=== PATIENT | female | born 1945 | race Caucasian/White ===

== ENCOUNTER 2016-04-17 17:08 | Emergency (ER) | payer OTHER ==
--- NOTE | 2016-04-17 18:15 | DIAGNOSTIC IMAGING REPORT ---
PROCEDURE: CT HEAD WITHOUT CONTRAST INDICATION: TRAUMA/INJURY TECHNIQUE: Axial CT images were acquired through the head. Coronal and sagittal reformations were created. COMPARISON: None. FINDINGS: Mild cerebral cortical atrophy. Minimal hypodensity in the periventricular and subcortical white matter. No intracranial hemorrhage or extraaxial fluid collections. Ventricles are normal in size, shape and position. There is no mass, mass effect or midline shift. The calvarium is intact. Fluid is noted within the nasal cavities. The extracranial soft tissues and orbits are normal. IMPRESSION: 1. No CT evidence of acute intracranial process. 2. Age related involutional and white matter changes. 3. Findings discussed with Tanesha at 06:[address] scans at this facility use dose modulation, iterative reconstruction, and/or weight-based dosing when appropriate to reduce radiation dose to as low as reasonably achievable.
--- NOTE | 2016-04-17 18:20 | ED CLINICAL REPORT ---
Clinical Report - Physicians/Mid Levels [facility] [address] [place] [address] 04/17/2016 17:08 Patient: DHAVAL ORTEGA Time Seen: 18:46 Apr 17 2016. Arrived- By ambulance. Historian- patient, EMS personnel and family. HISTORY OF PRESENT ILLNESS Chief Complaint: FALL. Location of injuries- (head/ nose). The injury occurred just prior to arrival. Fell. No fainting episodes. Occurred at home. The patient complains of mild pain. The patient sustained a blow to the head. No neck pain or loss of consciousness. Not dazed. (pt with dementia/ alzheimer fell today prior to arrival History from POA). REVIEW OF SYSTEMS No loss of vision, hearing loss or laceration. All systems otherwise negative, except as recorded above. SOCIAL HISTORY No alcohol use or drug use. ADDITIONAL NOTES The nursing notes have been reviewed. PHYSICAL EXAM Vital Signs: 04/17/2016 17:08 BP: 134/66. HR: 65. RR: 16. O2 saturation: 96%. Temp: 98.6 F. Appearance: Alert. No acute distress. but apparent distress. Head: Head non-tender. Eyes: EOM intact. Right periorbital area: (area of ecchymosis laterally and right sikh, with no abrasion). ENT: Nose: dried nasal blood and mild tenderness and swelling (mild, no ecchymosis/ laceration, dried blood left side). No abrasion, puncture wound or deformity over the nose. No foreign body. Neck: Non-tender. No vertebral tenderness. CVS: Heart sounds normal. Pulses normal. Respiratory: Breath sounds normal. Chest nontender. No chest wall injury. Abdomen: No visible injury. Soft. Bowel sounds normal. No abdominal tenderness or rebound tenderness. Back: No tenderness. ROM normal. No tenderness. Skin: Skin intact. Skin warm. Extremities: Right shoulder. No erythema or tenderness. Pelvis stable. Neuro: Moderately altered mental status: combative and disoriented to person, place and time. Eyes open spontaneously. Best verbal response: disoriented. Best motor response: localizes to pain. Not comatose. LABS, X-RAYS, AND EKG CT Head: (IMPRESSION: 1. No CT evidence of acute intracranial process. 2. Age related involutional and white matter changes. 3. Findings discussed with Tanesha at 06:[address] scans at this facility use dose modulation, iterative reconstruction, and/or weight-based dosing when appropriate to reduce radiation dose to as low as reasonably achievable. Electronically Final signed by:Jan Garrido MD 04/17/2016 6:18:33 PM). PROGRESS AND PROCEDURES Course of Care: 70-year-old female, who is disoriented, and pleasant, and per her normal self, patient is stable. NO signs of ich. Pt is DNR, poa/ does not want any further intervention. 04/17/2016 17:08 BP: 134/66. HR: 65. RR: 16. O2 saturation: 96%. Temp: 98.6 F. Patient is stable. Physical exam findings are improved. Symptoms better. Patient/family counseled. Disposition: Discharged. Condition: good. CLINICAL IMPRESSION Acute anterior, transient epistaxis Single contusion with soft tissue hematoma to the head. Fall on same level by tripping. INSTRUCTIONS Apply ice. Follow-up: Follow up with your doctor in three days as needed. (Electronically signed by Megan Almendarez P.A.-C 04/17/2016 18:51)
--- NOTE | 2016-04-17 18:20 | ED CLINICAL REPORT ---
Clinical Report - Physicians/Mid Levels [facility] [address] [place] [address] 04/17/2016 17:08 Patient: DHAVAL ORTEGA Time Seen: 18:46 Apr 17 2016. Arrived- By ambulance. Historian- patient, EMS personnel and family. HISTORY OF PRESENT ILLNESS Chief Complaint: FALL. Location of injuries- (head/ nose). The injury occurred just prior to arrival. Fell. No fainting episodes. Occurred at home. The patient complains of mild pain. The patient sustained a blow to the head. No neck pain or loss of consciousness. Not dazed. (pt with dementia/ alzheimer fell today prior to arrival History from POA). REVIEW OF SYSTEMS No loss of vision, hearing loss or laceration. All systems otherwise negative, except as recorded above. SOCIAL HISTORY No alcohol use or drug use. ADDITIONAL NOTES The nursing notes have been reviewed. PHYSICAL EXAM Vital Signs: 04/17/2016 17:08 BP: 134/66. HR: 65. RR: 16. O2 saturation: 96%. Temp: 98.6 F. Appearance: Alert. No acute distress. but apparent distress. Head: Head non-tender. Eyes: EOM intact. Right periorbital area: (area of ecchymosis laterally and right zoroastrian, with no abrasion). ENT: Nose: dried nasal blood and mild tenderness and swelling (mild, no ecchymosis/ laceration, dried blood left side). No abrasion, puncture wound or deformity over the nose. No foreign body. Neck: Non-tender. No vertebral tenderness. CVS: Heart sounds normal. Pulses normal. Respiratory: Breath sounds normal. Chest nontender. No chest wall injury. Abdomen: No visible injury. Soft. Bowel sounds normal. No abdominal tenderness or rebound tenderness. Back: No tenderness. ROM normal. No tenderness. Skin: Skin intact. Skin warm. Extremities: Right shoulder. No erythema or tenderness. Pelvis stable. Neuro: Moderately altered mental status: combative and disoriented to person, place and time. Eyes open spontaneously. Best verbal response: disoriented. Best motor response: localizes to pain. Not comatose. LABS, X-RAYS, AND EKG CT Head: (IMPRESSION: 1. No CT evidence of acute intracranial process. 2. Age related involutional and white matter changes. 3. Findings discussed with Tanesha at 06:[address] scans at this facility use dose modulation, iterative reconstruction, and/or weight-based dosing when appropriate to reduce radiation dose to as low as reasonably achievable. Electronically Final signed by:Jan Garrido MD 04/17/2016 6:18:33 PM). PROGRESS AND PROCEDURES Course of Care: 70-year-old female, who is disoriented, and pleasant, and per her normal self, patient is stable. NO signs of ich. Pt is DNR, poa/ does not want any further intervention. 04/17/2016 17:08 BP: 134/66. HR: 65. RR: 16. O2 saturation: 96%. Temp: 98.6 F. Patient is stable. Physical exam findings are improved. Symptoms better. Patient/family counseled. Disposition: Discharged. Condition: good. CLINICAL IMPRESSION Acute anterior, transient epistaxis Single contusion with soft tissue hematoma to the head. Fall on same level by tripping. INSTRUCTIONS Apply ice. Follow-up: Follow up with your doctor in three days as needed. (Electronically signed by Megan Almendarez P.A.-C 04/17/2016 18:51)
--- NOTE | 2016-04-17 18:21 | ED ORDER SUMMARY ---
..... Patient: DHAVAL ORTEGA OrderSheet [facility] VisitID: [id number] [address] [place] [address] 70y, F Registration Date/Time: 04/17/2016 ORDER SHEET Weight: 45.3 kg (estimated) Allergies: Penicillins, Sulfa Antibiotics GENERAL ORDERS: CT Head wo Cont Urgent (17:29 04/17/2016 Domi Arana) (Ack 17:33 NHouse ER Tech1) (18:01 NHouse ER Tech1) MEDICATION ORDERS: IV FLUIDS: ORDER SHEET NOTES: [Electronically signed by Megan Almendarez P.A.-C (18:51 04/17/2016)] [Electronically signed by David Nieves R.N. (23:12 04/17/2016)] [Electronically locked/signed by David Nieves R.N. (23:12 04/17/2016)]
--- NOTE | 2016-04-17 18:21 | ED NURSING NOTES ---
Clinical Report - Nurses [facility] [address] [place] [address] 04/17/2016 17:08 Patient: DHAVAL ORTEGA TRIAGE Triage time 1716. Chief Complaint: FALL while standing. Alert. No acute distress. SAPNA COMA SCORE: [place] Coma Scale: 15- eyes open spontaneously (4); best verbal response- oriented x 4 (5); best motor response- obeys commands (6). --17:18 David Nieves R.N. 17:08 04/17/16. BP: 134/66. HR: 65. RR: 16. O2 saturation: 96%. Temp: 98.6 F (oral). Pain level now not taken due to patient condition: cannot qualify. --17:18 David Nieves R.N. Weight: 45.3 kg estimated. Height/Length: 62 inches Estimated. BMI: 18.3. --17:08 David Nieves R.N. Medications Acetaminophen Extra Strength Oral. --17:20 David Nieves R.N. Aspirin Oral (Tablet Chewable 81 mg) 1 tablet. --17:20 David Nieves R.N. Tums Ultra 1000 Oral. --17:20 David Nieves R.N. Divalproex Sodium ER Oral. --17:21 David Nieves R.N. Multivitamins Oral. --17:21 David Nieves R.N. RisperiDONE Oral. --17:21 David Nieves R.N. Vitamin D Oral. --17:21 David Nieves R.N. Vitamin E Complex Oral. --17:21 David Nieves R.N. Ensure Oral. --17:22 David Nieves R.N. Melatonin Oral. --17:22 David Nieves R.N. LORazepam Oral. --17:23 David Nieves R.N. TraZODone HCl Oral. --17:24 David Nieves R.N. Allergies Penicillins. Sulfa Antibiotics. --17:18 David Nieves R.N. History Arrived by EMS. Historian: EMS. Location of injuries: right periorbital area. The patient had loss of consciousness. --17:18 David Nieves R.N. FALL RISK ASSESSMENT: Fall risk assessment completed. Risk factors identified include patient medications and age greater than 65 years. Fall interventions initiated. Patient placed on stretcher. Side rails up x2. Brakes on Bed in low position. Patient visible from nurses' station. Call light in reach of patient. Instructed not to get up without assistance. --17:29 David Nieves R.N. PROBLEMS: Laceration. Fall. Dementia. --17:26 David Nieves R.N. ADDITIONAL SURGERIES: no known surgeries. PHYSICAL ASSESSMENT To room via stretcher. GENERAL / NEURO / PSYCH: Alert. Oriented X 4. Appears in no acute distress. HEENT: Pupils equal, round and reactive to light. Head: ecchymosis present in the right temporal area. Active nose bleed present. Head non-tender. Right periorbital area: ecchymosis. RESPIRATORY: Respirations not labored. Chest nontender. Breath sounds within normal limits. CVS: Normal heart rate and rhythm. Pulses within normal limits. Capillary refill less than 2 seconds. GI / : Abdomen soft and nontender. EXTREMITIES: Extremities exhibit normal ROM. Neuro-vascular status intact to the extremity. Right shoulder: ecchymosis. SKIN: Skin intact. Skin is warm and dry. --23:07 David Nieves R.N. NURSING PROGRESS NOTES Bleeding controlled with manual pressure (patient provided with a towel to hold pressure for nose bleed). The patient reports no complaints and she is calm and resting quietly. Overall patient status is improved. GENERAL / NEURO / PSYCH: Alert. Altered mental status. (baseline dementia). RESPIRATORY: No respiratory distress. CVS: Capillary refill less than 2 seconds. GI / : Abdomen nontender. EXTREMITIES: Neuro-vascular status intact to the extremity. Call light placed in reach. Side rails up x 1. Bed placed in lowest position. Brakes of bed on. Patient placed in chair. --23:08 David Nieves R.N. ( Patient able to stand and ambulate out of the emergency department with an even and steady gait.). --23:11 David Nieves R.N. DISPOSITION / DISCHARGE Condition at departure: improved. The goals identified in the patient's plan of care were met. Ability to learn limited by poor comprehension and dementia; teaching performed with the family. Treatments reviewed (ice). Spouse verbalized understanding. The patient was discharged to the custodial and accompanied by spouse. She left the Emergency Department ambulatory and via private vehicle. Spouse driving. FALL RISK ASSESSMENT: Fall risk assessment completed. No fall risk identified. --23:10 David Nieves R.N. 18:40 04/17/16. BP: 120/85. HR: 85. RR: 16. O2 saturation: 100%. Temp: 98.2 F (oral). Pain level now: 0/10. --23:10 David Nieves R.N. Departure time: 1843 PM. --23:11 David Nieves R.N. Locked/Released at 04/17/2016 23:12 by David Nieves R.N.
--- NOTE | 2016-04-17 18:21 | ED NURSING NOTES ---
Clinical Report - Nurses [place] [address] [place] [address] 04/17/2016 17:08 Patient: DHAVAL ORTEGA TRIAGE Triage time 1716. Chief Complaint: FALL while standing. Alert. No acute distress. SAPNA COMA SCORE: [place] Coma Scale: 15- eyes open spontaneously (4); best verbal response- oriented x 4 (5); best motor response- obeys commands (6). --17:18 David Nieves R.N. 17:08 04/17/16. BP: 134/66. HR: 65. RR: 16. O2 saturation: 96%. Temp: 98.6 F (oral). Pain level now not taken due to patient condition: cannot qualify. --17:18 David Nieves R.N. Weight: 45.3 kg estimated. Height/Length: 62 inches Estimated. BMI: 18.3. --17:08 David Nieves R.N. Medications Acetaminophen Extra Strength Oral. --17:20 David Nieves R.N. Aspirin Oral (Tablet Chewable 81 mg) 1 tablet. --17:20 David Nieves R.N. Tums Ultra 1000 Oral. --17:20 David Nieves R.N. Divalproex Sodium ER Oral. --17:21 David Nieves R.N. Multivitamins Oral. --17:21 David Nieves R.N. RisperiDONE Oral. --17:21 David Nieves R.N. Vitamin D Oral. --17:21 David Nieves R.N. Vitamin E Complex Oral. --17:21 David Nieves R.N. Ensure Oral. --17:22 David Nieves R.N. Melatonin Oral. --17:22 David Nieves R.N. LORazepam Oral. --17:23 David Nieves R.N. TraZODone HCl Oral. --17:24 David Nieves R.N. Allergies Penicillins. Sulfa Antibiotics. --17:18 David Nieves R.N. History Arrived by EMS. Historian: EMS. Location of injuries: right periorbital area. The patient had loss of consciousness. --17:18 David Nieves R.N. FALL RISK ASSESSMENT: Fall risk assessment completed. Risk factors identified include patient medications and age greater than 65 years. Fall interventions initiated. Patient placed on stretcher. Side rails up x2. Brakes on Bed in low position. Patient visible from nurses' station. Call light in reach of patient. Instructed not to get up without assistance. --17:29 David Nieves R.N. PROBLEMS: Laceration. Fall. Dementia. --17:26 David Nieves R.N. ADDITIONAL SURGERIES: no known surgeries. PHYSICAL ASSESSMENT To room via stretcher. GENERAL / NEURO / PSYCH: Alert. Oriented X 4. Appears in no acute distress. HEENT: Pupils equal, round and reactive to light. Head: ecchymosis present in the right temporal area. Active nose bleed present. Head non-tender. Right periorbital area: ecchymosis. RESPIRATORY: Respirations not labored. Chest nontender. Breath sounds within normal limits. CVS: Normal heart rate and rhythm. Pulses within normal limits. Capillary refill less than 2 seconds. GI / : Abdomen soft and nontender. EXTREMITIES: Extremities exhibit normal ROM. Neuro-vascular status intact to the extremity. Right shoulder: ecchymosis. SKIN: Skin intact. Skin is warm and dry. --23:07 David Nieves R.N. NURSING PROGRESS NOTES Bleeding controlled with manual pressure (patient provided with a towel to hold pressure for nose bleed). The patient reports no complaints and she is calm and resting quietly. Overall patient status is improved. GENERAL / NEURO / PSYCH: Alert. Altered mental status. (baseline dementia). RESPIRATORY: No respiratory distress. CVS: Capillary refill less than 2 seconds. GI / : Abdomen nontender. EXTREMITIES: Neuro-vascular status intact to the extremity. Call light placed in reach. Side rails up x 1. Bed placed in lowest position. Brakes of bed on. Patient placed in chair. --23:08 David Nieves R.N. ( Patient able to stand and ambulate out of the emergency department with an even and steady gait.). --23:11 David Nieves R.N. DISPOSITION / DISCHARGE Condition at departure: improved. The goals identified in the patient's plan of care were met. Ability to learn limited by poor comprehension and dementia; teaching performed with the family. Treatments reviewed (ice). Spouse verbalized understanding. The patient was discharged to the [facility] and accompanied by spouse. She left the Emergency Department ambulatory and via private vehicle. Spouse driving. FALL RISK ASSESSMENT: Fall risk assessment completed. No fall risk identified. --23:10 David Nieves R.N. 18:40 04/17/16. BP: 120/85. HR: 85. RR: 16. O2 saturation: 100%. Temp: 98.2 F (oral). Pain level now: 0/10. --23:10 David Nieevs R.N. Departure time: 1843 PM. --23:11 David Nieves R.N. Locked/Released at 04/17/2016 23:12 by David Nieves R.N.
--- NOTE | 2016-04-17 18:21 | ED ORDER SUMMARY ---
..... Patient: DHAVAL ORTEGA OrderSheet [facility] VisitID: [id number] [address] [place] [address] 70y, F Registration Date/Time: 04/17/2016 ORDER SHEET Weight: 45.3 kg (estimated) Allergies: Penicillins, Sulfa Antibiotics GENERAL ORDERS: CT Head wo Cont Urgent (17:29 04/17/2016 Domi Arana) (Ack 17:33 [facility] ER Tech1) (18:01 NHouse ER Tech1) MEDICATION ORDERS: IV FLUIDS: ORDER SHEET NOTES: [Electronically signed by Megan Almendarez P.A.-C (18:51 04/17/2016)] [Electronically signed by David Nieves R.N. (23:12 04/17/2016)] [Electronically locked/signed by David Nieves R.N. (23:12 04/17/2016)]
--- NOTE | 2016-04-17 23:12 | ED DISCHARGE INSTRUCTIONS ---
Patient: DHAVAL ORTEGA General Instructions [facility] VisitID: [id number] [place] [address] 70y, F Registration Date/Time: 04/17/2016 Acute anterior, transient epistaxis Single contusion with soft tissue hematoma to the head. Fall on same level by tripping. INSTRUCTIONS Apply ice. Follow-up: Follow up with your doctor in three days as needed. ADDITIONAL INFORMATION Mechanical Fall You have had a fall today. It appears that the cause is mechanical. That means that you slipped, tripped or lost your balance. If your fall had been due to fainting or a seizure, further tests would be required. Home Care: Rest today and resume your normal activities when you are feeling back to normal. If you were injured during the fall, follow the advice from your doctor regarding care of your injury. You may use acetaminophen (Tylenol) or ibuprofen (Motrin, Advil) to control pain, unless another pain medicine was prescribed. [NOTE: If you have chronic liver or kidney disease or ever had a stomach ulcer or GI bleeding, talk with your doctor before using these medicines.] Fall Prevention: Was there anything that caused your fall that can be fixed, removed, or replaced? Make your home safe by keeping walkways clear of objects you may trip over. Use non-slip pads under rugs. Do not walk in poorly lit areas. Do not stand on chairs or wobbly ladders. Use caution when reaching overhead or looking upward. This position can cause a loss of balance. Be sure your shoes fit properly, have non-slip bottoms and are in good condition. Be cautious when going up and down curbs, and walking on uneven sidewalks. If your balance is poor, consider using a cane or walker. Stay as active as you can. Balance, flexibility, strength, and endurance all come from exercise. They all play a role in preventing falls. Follow Up with your doctor or as advised by our staff. Get Prompt Medical Attention if any of the following occur: Repeated mechanical falls, or unexplained falls Dizziness, fainting or seizure Severe headache Chest pain or shortness of breath Palpitations (very rapid or very slow or irregular heartbeat) Blood in vomit, stools (black or red color) Weakness of an arm or leg or one side of the face Difficulty with speech or vision Nosebleed [Adult] Bleeding from the nose most commonly occurs due to injury or drying and cracking of the inner lining of the nose. This can occur during a "common cold," "hay fever" attack, a very hot day, or from dry air in the winter. High blood pressure and hardening of the arteries (atherosclerosis) may also cause nosebleeds. If the bleeding site is found, it may be treated with a chemical or heat or electricity to cause a blood clot to form (cauterized). If the bleeding continues after cautery or if the bleeding site cannot be found, a packing may be placed in your nose to apply pressure and stop the bleeding. The packing may be made of gauze or sponge. A small balloon catheter is sometimes used. These need to be removed by your doctor. Some types of packing dissolve on their own. Home Care: If a packing was put in your nose, unless told otherwise, do not pull on it or try to remove it yourself. You will be given an appointment to have it removed. You may also have been given antibiotics to prevent a sinus infection. If so, complete all the medicine. Do not blow your nose for 12 hours after the bleeding stops. This will allow a strong blood clot to form. Do not pick your nose. This may restart bleeding. Avoid alcohol and hot liquids for the next two days. Alcohol or hot liquids in your mouth can dilate blood vessels in your nose and cause bleeding to start again. Do not take ibuprofen (Advil, Motrin), naprosyn (Aleve) or aspirin-containing medicines since these thin the blood and may promote nose bleeding. You may take Tylenol (acetaminophen) for pain, unless another pain medicine was prescribed. If the bleeding starts again, sit up and lean forward to prevent swallowing blood. Pinch your nose tightly for exactly 5 minutes (watch the clock). If bleeding is not controlled, continue to pinch and call your doctor or return to this facility. If high blood pressure was a cause for your nosebleed, have your blood pressure checked again tomorrow. If you have a "cold" or "hay fever" or dry nasal membranes, lubricate the nasal passages by applying a small amount of Vaseline inside the nose with a Q-tip twice a day (morning and night). Avoid overheating your home, which can dry the air and worsen your condition. Follow Up with your doctor as advised for packing removal. Nasal packing should be rechecked or removed within 2-3 days. Get Prompt Medical Attention if any of the following occur: Another nosebleed that you cannot control Dizziness, weakness or fainting Fever of 100.4F (38C) or higher, or as directed by your healthcare provider Headache Sinus or facial pain Shortness of breath or trouble breathing You have been given the following additional information: Fall, Mechanical Epistaxis (Adult) (Electronically signed by Megan Almendarez P.A.-C 04/17/2016 18:51)
--- NOTE | 2016-04-17 23:12 | ED MED RECONCILIATION SUMMARY ---
Patient: DHAVAL ORTEGA Medication Reconciliation Report [facility] VisitID: [id number] [address] [place] [address] 70y, F Registration Date/Time: 04/17/2016 Weight: 45.3 kg Height/Length: 62 in. BMI: 18.3 ALLERGIES: Penicillins, Sulfa Antibiotics The patient's Home Medications are listed below: THE FOLLOWING MEDICATIONS NEED TO BE RECONCILED: Acetaminophen Extra Strength Oral Aspirin Oral (81 mg) 1 tablet Divalproex Sodium ER Oral Ensure Oral LORazepam Oral Melatonin Oral Multivitamins Oral RisperiDONE Oral TraZODone HCl Oral Tums Ultra 1000 Oral Vitamin D Oral Vitamin E Complex Oral The source(s) of the original Home Medication information: Not obtained. The following Medications were given to the patient in the Emergency Department: None. The following Medications were prescribed to the patient: None.
--- NOTE | 2016-04-17 23:12 | ED MAR SUMMARY ---
..... Medication Administration Record [facility] [address] [place], [place] [id number] Patient: DHAVAL ORTEGA Visit ID: [id number] 70y, F Weight: 45.3 kg Height/Length: 62 in BMI: 18.3 ALLERGIES: Penicillins, Sulfa Antibiotics
--- NOTE | 2016-04-17 23:12 | ED MED RECONCILIATION SUMMARY ---
Patient: DHAVAL ORTEGA Medication Reconciliation Report [facility] VisitID: [id number] [address] [place] [address] 70y, F Registration Date/Time: 04/17/2016 Weight: 45.3 kg Height/Length: 62 in. BMI: 18.3 ALLERGIES: Penicillins, Sulfa Antibiotics The patient's Home Medications are listed below: THE FOLLOWING MEDICATIONS NEED TO BE RECONCILED: Acetaminophen Extra Strength Oral Aspirin Oral (81 mg) 1 tablet Divalproex Sodium ER Oral Ensure Oral LORazepam Oral Melatonin Oral Multivitamins Oral RisperiDONE Oral TraZODone HCl Oral Tums Ultra 1000 Oral Vitamin D Oral Vitamin E Complex Oral The source(s) of the original Home Medication information: Not obtained. The following Medications were given to the patient in the Emergency Department: None. The following Medications were prescribed to the patient: None.
--- NOTE | 2016-04-17 23:12 | ED MAR SUMMARY ---
..... Medication Administration Record [facility] [address] [place], [place] [id number] Patient: DHAVAL ORTEGA Visit ID: [id number] 70y, F Weight: 45.3 kg Height/Length: 62 in BMI: 18.3 ALLERGIES: Penicillins, Sulfa Antibiotics
== END 2016-04-17 18:39 | disposition home or self-care (01) ==
LOC: ED SRH 17:08
DX: S00.93XA Contusion of unspecified part of head, initial encounter (principal); R04.0 Epistaxis; W01.0XXA Fall on same level from slipping, tripping and stumbling without subsequent striking against object, initial encounter; Y93.89 Activity, other specified; Y92.009 Unspecified place in unspecified non-institutional (private) residence as the place of occurrence of the external cause; Y99.9 Unspecified external cause status; Z79.82 Long term (current) use of aspirin; Z79.899 Other long term (current) drug therapy; Z88.0 Allergy status to penicillin; Z88.2 Allergy status to sulfonamides

== ENCOUNTER 2016-04-30 19:35 | Emergency (ER) | payer OTHER ==
--- NOTE | 2016-04-30 20:44 | ED CLINICAL REPORT ---
Clinical Report - Physicians/Mid Levels [facility] [address] [place] [address] 04/30/2016 19:39 Patient: DHAVAL ORTEGA Time Seen: 19:42 Apr 30 2016. Arrived- By ambulance. Historian- EMS personnel. CPT: ER phys charges level 4 (#[id number]). HISTORY OF PRESENT ILLNESS Location of injuries- face and nose. Chief Complaint: INJURY TO FACE and NOSE. The injury occurred just prior to arrival. Occurred at home. ( Patient lives at [facility] dementia unit. She was observed by staff to trip on her slippers and fall forward. She then hit her nose in her head. No other injury. She is not on any anticoagulants. She did not have a loss of consciousness. She has no complaints of pain at this time. She has not been ill or weak.). Fell. The patient complains of mild pain. The patient sustained a blow to the head. No neck pain or loss of consciousness. Not dazed. REVIEW OF SYSTEMS No numbness, dizziness, chest pain, difficulty breathing or nausea. No abdominal pain, laceration or vomiting. She has no pain on weight bearing. All systems otherwise negative, except as recorded above. PAST HISTORY See nurses notes. Epistaxis. Laceration. Fall. Depression. Dementia. Medications: Ensure Oral. LORazepam Oral. Melatonin Oral. Multivitamins Oral. RisperiDONE Oral. TraZODone HCl Oral. Tums Ultra 1000 Oral. Vitamin D Oral. Vitamin E Complex Oral. Acetaminophen Extra Strength Oral. Aspirin Oral (Tablet Chewable 81 mg) 1 tablet. Divalproex Sodium ER Oral. Allergies: Penicillins. Sulfa Antibiotics. SOCIAL HISTORY Never smoker. No alcohol use or drug use. ADDITIONAL NOTES The nursing notes have been reviewed. PHYSICAL EXAM Vital Signs: 04/30/2016 19:42 BP: 117/64. HR: 81. RR: 16. O2 saturation: 98%. Temp: 99.5 F. Pain level now: 5/10. Appearance: Alert. No acute distress. Head: Forehead: mild tenderness, moderate swelling and medium sized ecchymosis of the right side of the forehead. No erythema, puncture wound or deformity. Eyes: Pupils equal, round and reactive to light. EOM intact. ENT: No dental injury. Pharynx normal. Nose: mild tenderness and small abrasion. No laceration. No swelling or deformity over the nose. No epistaxis or septal hematoma. Neck: No decreased ROM in the neck. Painless ROM. Non-tender. Non-tender. No vertebral tenderness. CVS: Heart sounds normal. Pulses normal. Respiratory: Breath sounds normal. Chest nontender. Abdomen: No visible injury. Soft and nontender. Back: No tenderness. Skin: Skin intact. Skin warm. Normal skin color. Extremities: Normal inspection. Pelvis stable. Extremities atraumatic. Neuro: Mildly altered mental status: disoriented. Eyes open spontaneously. Best verbal response: disoriented. Best motor response: obeys commands. No motor deficit. No sensory deficit. PROGRESS AND PROCEDURES Course of Care: 19:52 04/30/16. Patient has no evidence of any injury other than facial. No evidence of nasal fracture. Has not had any epistaxis. She did not have a loss of consciousness and is not on any anticoagulants. She does not appear to be ill or having any ongoing problems that would contribute to the fall. 20:41 04/30/16. Patient ambulated with present. Patient did baseline according to . was concerned because her gait seemed to be off earlier in the day. No sign of deficit at this time so will arrange to have a follow-up with PCP. Patient/family counseled. Disposition: Discharged in stable condition. CLINICAL IMPRESSION Fall on same level by tripping. Single superficial abrasion to the nose. Single contusion with soft tissue hematoma to the forehead. Dementia. INSTRUCTIONS Apply ice for 15-20 minutes three times a day for one days. (As tolerates.). Warnings: HEAD INJURY PRECAUTIONS: An observer must check on the patient every 4 hours for the next 24 hours to confirm that the patient responds as expected, is not confused, has no new weakness or numbness, and has no other problems. Your Current Medications: CONTINUE TAKING THE FOLLOWING MEDICATIONS: Acetaminophen Extra Strength Oral. Aspirin Oral : Tablet Chewable 81 mg, 1 tablet. Divalproex Sodium ER Oral. Ensure Oral. LORazepam Oral. Melatonin Oral. Multivitamins Oral. RisperiDONE Oral. TraZODone HCl Oral. Tums Ultra 1000 Oral. Vitamin D Oral. Vitamin E Complex Oral. OTC Medications: Acetaminophen (available over the counter): take according to label instructions. Follow-up: Follow up with your doctor Saturday in four days. Call for the next available appointment. Understanding of the discharge instructions verbalized by patient and family. Discharge instructions reviewed with and understanding was verbalized by spouse. (Electronically signed by Gerber Artis MD 05/03/2016 8:53)
--- NOTE | 2016-04-30 20:44 | ED CLINICAL REPORT ---
Clinical Report - Physicians/Mid Levels [facility] [address] [place] [address] 04/30/2016 19:39 Patient: DHAVAL ORTEGA Time Seen: 19:42 Apr 30 2016. Arrived- By ambulance. Historian- EMS personnel. CPT: ER phys charges level 4 (#[id number]). HISTORY OF PRESENT ILLNESS Location of injuries- face and nose. Chief Complaint: INJURY TO FACE and NOSE. The injury occurred just prior to arrival. Occurred at home. ( Patient lives at [facility] dementia unit. She was observed by staff to trip on her slippers and fall forward. She then hit her nose in her head. No other injury. She is not on any anticoagulants. She did not have a loss of consciousness. She has no complaints of pain at this time. She has not been ill or weak.). Fell. The patient complains of mild pain. The patient sustained a blow to the head. No neck pain or loss of consciousness. Not dazed. REVIEW OF SYSTEMS No numbness, dizziness, chest pain, difficulty breathing or nausea. No abdominal pain, laceration or vomiting. She has no pain on weight bearing. All systems otherwise negative, except as recorded above. PAST HISTORY See nurses notes. Epistaxis. Laceration. Fall. Depression. Dementia. Medications: Ensure Oral. LORazepam Oral. Melatonin Oral. Multivitamins Oral. RisperiDONE Oral. TraZODone HCl Oral. Tums Ultra 1000 Oral. Vitamin D Oral. Vitamin E Complex Oral. Acetaminophen Extra Strength Oral. Aspirin Oral (Tablet Chewable 81 mg) 1 tablet. Divalproex Sodium ER Oral. Allergies: Penicillins. Sulfa Antibiotics. SOCIAL HISTORY Never smoker. No alcohol use or drug use. ADDITIONAL NOTES The nursing notes have been reviewed. PHYSICAL EXAM Vital Signs: 04/30/2016 19:42 BP: 117/64. HR: 81. RR: 16. O2 saturation: 98%. Temp: 99.5 F. Pain level now: 5/10. Appearance: Alert. No acute distress. Head: Forehead: mild tenderness, moderate swelling and medium sized ecchymosis of the right side of the forehead. No erythema, puncture wound or deformity. Eyes: Pupils equal, round and reactive to light. EOM intact. ENT: No dental injury. Pharynx normal. Nose: mild tenderness and small abrasion. No laceration. No swelling or deformity over the nose. No epistaxis or septal hematoma. Neck: No decreased ROM in the neck. Painless ROM. Non-tender. Non-tender. No vertebral tenderness. CVS: Heart sounds normal. Pulses normal. Respiratory: Breath sounds normal. Chest nontender. Abdomen: No visible injury. Soft and nontender. Back: No tenderness. Skin: Skin intact. Skin warm. Normal skin color. Extremities: Normal inspection. Pelvis stable. Extremities atraumatic. Neuro: Mildly altered mental status: disoriented. Eyes open spontaneously. Best verbal response: disoriented. Best motor response: obeys commands. No motor deficit. No sensory deficit. PROGRESS AND PROCEDURES Course of Care: 19:52 04/30/16. Patient has no evidence of any injury other than facial. No evidence of nasal fracture. Has not had any epistaxis. She did not have a loss of consciousness and is not on any anticoagulants. She does not appear to be ill or having any ongoing problems that would contribute to the fall. 20:41 04/30/16. Patient ambulated with present. Patient did baseline according to . was concerned because her gait seemed to be off earlier in the day. No sign of deficit at this time so will arrange to have a follow-up with PCP. Patient/family counseled. Disposition: Discharged in stable condition. CLINICAL IMPRESSION Fall on same level by tripping. Single superficial abrasion to the nose. Single contusion with soft tissue hematoma to the forehead. Dementia. INSTRUCTIONS Apply ice for 15-20 minutes three times a day for one days. (As tolerates.). Warnings: HEAD INJURY PRECAUTIONS: An observer must check on the patient every 4 hours for the next 24 hours to confirm that the patient responds as expected, is not confused, has no new weakness or numbness, and has no other problems. Your Current Medications: CONTINUE TAKING THE FOLLOWING MEDICATIONS: Acetaminophen Extra Strength Oral. Aspirin Oral : Tablet Chewable 81 mg, 1 tablet. Divalproex Sodium ER Oral. Ensure Oral. LORazepam Oral. Melatonin Oral. Multivitamins Oral. RisperiDONE Oral. TraZODone HCl Oral. Tums Ultra 1000 Oral. Vitamin D Oral. Vitamin E Complex Oral. OTC Medications: Acetaminophen (available over the counter): take according to label instructions. Follow-up: Follow up with your doctor Saturday in four days. Call for the next available appointment. Understanding of the discharge instructions verbalized by patient and family. Discharge instructions reviewed with and understanding was verbalized by spouse. (Electronically signed by Gerber Artis MD 05/03/2016 8:53)
--- NOTE | 2016-04-30 20:44 | ED ORDER SUMMARY ---
..... Patient: DHAVAL ORTEGA OrderSheet [facility] VisitID: [id number] [address] [place] [address] 70y, F Registration Date/Time: 04/30/2016 ORDER SHEET Weight: 65.7 kg (stated) Allergies: Penicillins, Sulfa Antibiotics GENERAL ORDERS: - (Walk test) (19:53 04/30/2016 Jennifer LE) (21:13 Prosper Duarte) MEDICATION ORDERS: IV FLUIDS: ORDER SHEET NOTES: [Electronically signed by Stanford Chnug R.N. (21:15 04/30/2016)] [Electronically signed by Gerber Artis MD (08:53 05/03/2016)] [Electronically locked/signed by Stanford Chung R.N. (21:15 04/30/2016)]
--- NOTE | 2016-04-30 20:44 | ED NURSING NOTES ---
Clinical Report - Nurses [facility] [address] [place] [address] 04/30/2016 19:39 Patient: DHAVAL ORTEGA TRIAGE Triage time 19:40 Apr 30 2016. Acuity: LEVEL 3. Chief Complaint: INJURY TO FOREHEAD. Alert. RICHMOND COMA SCORE: [place] Coma Scale: 13- eyes open spontaneously (4); best verbal response- disoriented (4); best motor response- localizes to pain (5). --20:01 Stanford Chung R.N. 19:42 04/30/16. BP: 117/64. HR: 81. RR: 16. O2 saturation: 98%. Temp: 99.5 F (oral). Pain level now: 5/10. Additional comments: (R) forehead. --20:01 Stanford Chung R.N. Weight: 65.7 kg stated. Height/Length: 64 inches Per Patient. BMI: 24.9. --19:50 Stanford Chung R.N. Medications Acetaminophen Extra Strength Oral. Aspirin Oral (Tablet Chewable 81 mg) 1 tablet. Divalproex Sodium ER Oral. --19:52 Stanford Chung R.N. Ensure Oral. LORazepam Oral. Melatonin Oral. Multivitamins Oral. RisperiDONE Oral. TraZODone HCl Oral. Tums Ultra 1000 Oral. Vitamin D Oral. Vitamin E Complex Oral. --19:52 Stanford Chung R.N. Medication/allergy information source: the patient's imported external medical record. --20:01 Stanford Chung R.N. Allergies Penicillins. Sulfa Antibiotics. --19:52 Stanford Chung R.N. History Arrived by private vehicle. Historian: patient. Unaccompanied. ( GLF sustaining a bump to the (R) forehead and laceration to the nose. Pt tripped over her slippers. Pt is a resident of the [facility]. Witnessed fall with no LOC.). This occurred just prior to arrival and today. Occurred at shelter. ( Abrasion to nose). ( Abrasion(s) to nose). No loss of consciousness. 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 PAST MEDICAL HX: Immunizations: up-to-date and seasonal influenza: first dose. The patient is post-menopausal. SOCIAL HX: Never smoker. No alcohol use or drug use. No infectious disease exposure. ABUSE ASSESSMENT: No report of abuse. NUTRITIONAL RISK ASSESSMENT: The nutritional risk assessment revealed no deficiencies. FUNCTIONAL ASSESSMENT: Functional assessment: no impairments noted. LEARNING NEEDS ASSESSMENT: The learning needs assessment revealed no barriers. FALL RISK ASSESSMENT: Fall risk assessment completed. Risk factors identified include patient age greater than 65 years and history of fall. Fall interventions initiated. Side rails up x2. Brakes on Bed in low position. Patient visible from nurses' station. Call light in reach. Instructed not to get up without assistance. SKIN INTEGRITY ASSESSMENT: Skin integrity risk assessment completed. No skin integrity risk identified. --20:01 Stanford Chung R.N. PROBLEMS: Epistaxis. Laceration. Fall. Depression. Dementia. --19:53 Stanford Chung R.N. Interventions ID band on patient. To treatment room. --20:01 Stanford Chung R.N. PHYSICAL ASSESSMENT To room via stretcher. GENERAL / NEURO / PSYCH: Alert. Oriented X 4. HEENT: Forehead: tenderness of the right side of the forehead. Facial swelling present Forehead (R). Head non-tender. ( Abrasions to nose). Mucous membranes are pink. RESPIRATORY: Respirations not labored. CVS: Capillary refill less than 2 seconds. SKIN: Skin is warm and dry. --20:02 Stanford Chung R.N. NURSING PROGRESS NOTES Patient gowned. Reassurance given. Patient identifiers checked. Call light placed in reach. Side rails up x 1. Bed placed in lowest position. Brakes of bed on. Patient ready for evaluation- chart flagged and ED physician notified. --20:03 Stanford Chung R.N. 20:05 04/30/16. ( here and states that pt and he had gone out to dinner tonight and he noticed that the pt was having more trouble then usual walking and getting out of the car tonight when he took her back to [employer].). --20:05 Stanford Chung R.N. 20:30. ( Ambulalting in the [place] arm-in-arm with her and has a good stride.). --21:14 Stanford Chung R.N. DISPOSITION / DISCHARGE <<STRICKEN ENTRY-- 21:00 04/30/16. BP: 124/67. HR: 78. RR: 16. O2 saturation: 98% on room air. Temp: 99 F. Pain level now: 2/10. Additional comments: (R) Forehead contusion. --21:02 Stanford Chung R.N. --END STRIKE>> Correction --21:04 Stanford Chung R.N. Departure time: 2044. --21:03 Stanford Chung R.N. 20:40 04/30/16. BP: 204/67. HR: 78. RR: 16. O2 saturation: 98% on room air. Temp: 99 F (oral). Pain level now: 2/10. Additional comments: Contusion (R) Forehead. --21:06 Stanford Chung R.N. 20:45. Condition at departure: improved. No learning barriers present. Discharge instructions provided and reviewed with the patient. Reviewed medication(s) (Contiue your usaul medications). Reviewed referral to family practice for followup. Spouse verbalized understanding. Written instructions provided in Khmer. The patient was discharged by the physician. She was discharged home and accompanied by spouse. She left the Emergency Department ambulatory and via private vehicle. Spouse driving. --21:12 Stanford Chung R.N. Locked/Released at 04/30/2016 21:15 by Stanford Chung R.N.
--- NOTE | 2016-04-30 20:44 | ED ORDER SUMMARY ---
..... Patient: DHAVAL ORTEGA OrderSheet [facility] VisitID: [id number] [address] [place] [address] 70y, F Registration Date/Time: 04/30/2016 ORDER SHEET Weight: 65.7 kg (stated) Allergies: Penicillins, Sulfa Antibiotics GENERAL ORDERS: - (Walk test) (19:53 04/30/2016 Jennifer LE) (21:13 Prosper Duarte) MEDICATION ORDERS: IV FLUIDS: ORDER SHEET NOTES: [Electronically signed by Stanford Chung R.N. (21:15 04/30/2016)] [Electronically signed by Gerber Artis MD (08:53 05/03/2016)] [Electronically locked/signed by Stanford Chung R.N. (21:15 04/30/2016)]
--- NOTE | 2016-04-30 20:44 | ED NURSING NOTES ---
Clinical Report - Nurses [facility] [address] [place] [address] 04/30/2016 19:39 Patient: DHAVAL ORTEGA TRIAGE Triage time 19:40 Apr 30 2016. Acuity: LEVEL 3. Chief Complaint: INJURY TO FOREHEAD. Alert. RICHMOND COMA SCORE: [place] Coma Scale: 13- eyes open spontaneously (4); best verbal response- disoriented (4); best motor response- localizes to pain (5). --20:01 Stanford Chung R.N. 19:42 04/30/16. BP: 117/64. HR: 81. RR: 16. O2 saturation: 98%. Temp: 99.5 F (oral). Pain level now: 5/10. Additional comments: (R) forehead. --20:01 Stanford Chung R.N. Weight: 65.7 kg stated. Height/Length: 64 inches Per Patient. BMI: 24.9. --19:50 Stanford Chung R.N. Medications Acetaminophen Extra Strength Oral. Aspirin Oral (Tablet Chewable 81 mg) 1 tablet. Divalproex Sodium ER Oral. --19:52 Stanford Chung R.N. Ensure Oral. LORazepam Oral. Melatonin Oral. Multivitamins Oral. RisperiDONE Oral. TraZODone HCl Oral. Tums Ultra 1000 Oral. Vitamin D Oral. Vitamin E Complex Oral. --19:52 Stanford Chung R.N. Medication/allergy information source: the patient's imported external medical record. --20:01 Stanford Chung R.N. Allergies Penicillins. Sulfa Antibiotics. --19:52 Stanford Chung R.N. History Arrived by private vehicle. Historian: patient. Unaccompanied. ( GLF sustaining a bump to the (R) forehead and laceration to the nose. Pt tripped over her slippers. Pt is a resident of the [facility]. Witnessed fall with no LOC.). This occurred just prior to arrival and today. Occurred at [facility]. ( Abrasion to nose). ( Abrasion(s) to nose). No loss of consciousness. 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 PAST MEDICAL HX: Immunizations: up-to-date and seasonal influenza: first dose. The patient is post-menopausal. SOCIAL HX: Never smoker. No alcohol use or drug use. No infectious disease exposure. ABUSE ASSESSMENT: No report of abuse. NUTRITIONAL RISK ASSESSMENT: The nutritional risk assessment revealed no deficiencies. FUNCTIONAL ASSESSMENT: Functional assessment: no impairments noted. LEARNING NEEDS ASSESSMENT: The learning needs assessment revealed no barriers. FALL RISK ASSESSMENT: Fall risk assessment completed. Risk factors identified include patient age greater than 65 years and history of fall. Fall interventions initiated. Side rails up x2. Brakes on Bed in low position. Patient visible from nurses' station. Call light in reach. Instructed not to get up without assistance. SKIN INTEGRITY ASSESSMENT: Skin integrity risk assessment completed. No skin integrity risk identified. --20:01 Stanford Chung R.N. PROBLEMS: Epistaxis. Laceration. Fall. Depression. Dementia. --19:53 Stanford Chung R.N. Interventions ID band on patient. To treatment room. --20:01 Stanford Chung R.N. PHYSICAL ASSESSMENT To room via stretcher. GENERAL / NEURO / PSYCH: Alert. Oriented X 4. HEENT: Forehead: tenderness of the right side of the forehead. Facial swelling present Forehead (R). Head non-tender. ( Abrasions to nose). Mucous membranes are pink. RESPIRATORY: Respirations not labored. CVS: Capillary refill less than 2 seconds. SKIN: Skin is warm and dry. --20:02 Stanford Chung R.N. NURSING PROGRESS NOTES Patient gowned. Reassurance given. Patient identifiers checked. Call light placed in reach. Side rails up x 1. Bed placed in lowest position. Brakes of bed on. Patient ready for evaluation- chart flagged and ED physician notified. --20:03 Stanford Chung R.N. 20:05 04/30/16. ( here and states that pt and he had gone out to dinner tonight and he noticed that the pt was having more trouble then usual walking and getting out of the car tonight when he took her back to [employer].). --20:05 Stanford Chung R.N. 20:30. ( Ambulalting in the [place] arm-in-arm with her and has a good stride.). --21:14 Stanford Chung R.N. DISPOSITION / DISCHARGE <<STRICKEN ENTRY-- 21:00 04/30/16. BP: 124/67. HR: 78. RR: 16. O2 saturation: 98% on room air. Temp: 99 F. Pain level now: 2/10. Additional comments: (R) Forehead contusion. --21:02 Stanford Chung R.N. --END STRIKE>> Correction --21:04 Stanford Chung R.N. Departure time: 2044. --21:03 Stanford Chung R.N. 20:40 04/30/16. BP: 204/67. HR: 78. RR: 16. O2 saturation: 98% on room air. Temp: 99 F (oral). Pain level now: 2/10. Additional comments: Contusion (R) Forehead. --21:06 Stanford Chung R.N. 20:45. Condition at departure: improved. No learning barriers present. Discharge instructions provided and reviewed with the patient. Reviewed medication(s) (Contiue your usaul medications). Reviewed referral to family practice for followup. Spouse verbalized understanding. Written instructions provided in Uzbek. The patient was discharged by the physician. She was discharged home and accompanied by spouse. She left the Emergency Department ambulatory and via private vehicle. Spouse driving. --21:12 Stanford Chung R.N. Locked/Released at 04/30/2016 21:15 by Stanford Chung R.N.
--- NOTE | 2016-05-03 08:53 | ED MED RECONCILIATION SUMMARY ---
Patient: DHAVAL ORTEGA Medication Reconciliation Report [facility] VisitID: [id number] [place] [address] 70y, F Registration Date/Time: 04/30/2016 Weight: 65.7 kg Height/Length: 64 in. BMI: 24.9 ALLERGIES: Penicillins, Sulfa Antibiotics The patient's Home Medications are listed below: CONTINUE TAKING THE FOLLOWING MEDICATIONS: Acetaminophen Extra Strength Oral Aspirin Oral (81 mg) 1 tablet Divalproex Sodium ER Oral Ensure Oral LORazepam Oral Melatonin Oral Multivitamins Oral RisperiDONE Oral TraZODone HCl Oral Tums Ultra 1000 Oral Vitamin D Oral Vitamin E Complex Oral The source(s) of the original Home Medication information: patient's imported external medical record The following Medications were given to the patient in the Emergency Department: None. The following Medications were prescribed to the patient: Acetaminophen (available over the counter): take according to label instructions. -- Gerber Artis MD
--- NOTE | 2016-05-03 08:53 | ED MAR SUMMARY ---
..... Medication Administration Record [facility] [address] [place], [place] [id number] Patient: DHAVAL ORTEGA Visit ID: [id number] 70y, F Weight: 65.7 kg Height/Length: 64 in BMI: 24.9 ALLERGIES: Penicillins, Sulfa Antibiotics
--- NOTE | 2016-05-03 08:53 | ED MED RECONCILIATION SUMMARY ---
Patient: DHAVAL ORTEGA Medication Reconciliation Report [facility] VisitID: [id number] [place] [address] 70y, F Registration Date/Time: 04/30/2016 Weight: 65.7 kg Height/Length: 64 in. BMI: 24.9 ALLERGIES: Penicillins, Sulfa Antibiotics The patient's Home Medications are listed below: CONTINUE TAKING THE FOLLOWING MEDICATIONS: Acetaminophen Extra Strength Oral Aspirin Oral (81 mg) 1 tablet Divalproex Sodium ER Oral Ensure Oral LORazepam Oral Melatonin Oral Multivitamins Oral RisperiDONE Oral TraZODone HCl Oral Tums Ultra 1000 Oral Vitamin D Oral Vitamin E Complex Oral The source(s) of the original Home Medication information: patient's imported external medical record The following Medications were given to the patient in the Emergency Department: None. The following Medications were prescribed to the patient: Acetaminophen (available over the counter): take according to label instructions. -- Gerber Artis MD
--- NOTE | 2016-05-03 08:53 | ED DISCHARGE INSTRUCTIONS ---
Patient: DHAVAL ORTEGA General Instructions [facility] VisitID: [id number] [place] [address] 70y, F Registration Date/Time: 04/30/2016 Fall on same level by tripping. Single superficial abrasion to the nose. Single contusion with soft tissue hematoma to the forehead. Dementia. INSTRUCTIONS Apply ice for 15-20 minutes three times a day for one days. (As tolerates.). Warnings: HEAD INJURY PRECAUTIONS: An observer must check on the patient every 4 hours for the next 24 hours to confirm that the patient responds as expected, is not confused, has no new weakness or numbness, and has no other problems. Your Current Medications: CONTINUE TAKING THE FOLLOWING MEDICATIONS: Acetaminophen Extra Strength Oral. Aspirin Oral : Tablet Chewable 81 mg, 1 tablet. Divalproex Sodium ER Oral. Ensure Oral. LORazepam Oral. Melatonin Oral. Multivitamins Oral. RisperiDONE Oral. TraZODone HCl Oral. Tums Ultra 1000 Oral. Vitamin D Oral. Vitamin E Complex Oral. OTC Medications: Acetaminophen (available over the counter): take according to label instructions. Follow-up: Follow up with your doctor Saturday in four days. Call for the next available appointment. Understanding of the discharge instructions verbalized by patient and family. Discharge instructions reviewed with and understanding was verbalized by spouse. ADDITIONAL INFORMATION Mechanical Fall You have had a fall today. It appears that the cause is mechanical. That means that you slipped, tripped or lost your balance. If your fall had been due to fainting or a seizure, further tests would be required. Home Care: Rest today and resume your normal activities when you are feeling back to normal. If you were injured during the fall, follow the advice from your doctor regarding care of your injury. You may use acetaminophen (Tylenol) or ibuprofen (Motrin, Advil) to control pain, unless another pain medicine was prescribed. [NOTE: If you have chronic liver or kidney disease or ever had a stomach ulcer or GI bleeding, talk with your doctor before using these medicines.] Fall Prevention: Was there anything that caused your fall that can be fixed, removed, or replaced? Make your home safe by keeping walkways clear of objects you may trip over. Use non-slip pads under rugs. Do not walk in poorly lit areas. Do not stand on chairs or wobbly ladders. Use caution when reaching overhead or looking upward. This position can cause a loss of balance. Be sure your shoes fit properly, have non-slip bottoms and are in good condition. Be cautious when going up and down curbs, and walking on uneven sidewalks. If your balance is poor, consider using a cane or walker. Stay as active as you can. Balance, flexibility, strength, and endurance all come from exercise. They all play a role in preventing falls. Follow Up with your doctor or as advised by our staff. Get Prompt Medical Attention if any of the following occur: Repeated mechanical falls, or unexplained falls Dizziness, fainting or seizure Severe headache Chest pain or shortness of breath Palpitations (very rapid or very slow or irregular heartbeat) Blood in vomit, stools (black or red color) Weakness of an arm or leg or one side of the face Difficulty with speech or vision Head Injury, No Wake-Up (Adult) You have had a head injury. It does not appear serious at this time. Symptoms of a more serious problem (concussion, bruising, or bleeding in the brain) may appear later. Therefore, watch for the WARNING SIGNS listed below. Home Care: Your healthcare provider will tell you whether its okay to drive. If so, you can drive yourself home. For the next day or so, be careful when driving or using heavy machinery until you are sure you have no delayed symptoms. During the next 24 hours someone must stay with you to check for the signs below. It is not necessary to stay awake or be awakened during the night. If you have swelling of the face or scalp, apply an ice pack (ice cubes in a plastic bag, wrapped in a towel) for 20 minutes. Do this every 1-2 hours until the swelling starts to go down. Do not use aspirin or ibuprofen (Motrin, Advil) after a head injury.You may use acetaminophen (Tylenol)to control pain, unless another pain medicine was prescribed. [NOTE: If you have chronic liver or kidney disease or ever had a stomach ulcer or GI bleeding, talk with your doctor before using these medicines.] For the next 24 hours: Do not take alcohol, sedatives or medicines that make you sleepy. Avoid strenuous activities. No lifting or straining. If you have had any symptoms of a concussion today (nausea, vomiting, dizziness, confusion, headache, memory loss or if you were knocked out), do not return to sports or any activity that could result in another head injury until all symptoms are gone and you have been cleared by your doctor. A second head injury before fully recovering from the first one can lead to serious brain injury. Follow Up with your doctor if symptoms are not improving after 24 hours, or as directed. [NOTE: A radiologist will review any X-rays or CT scans that were taken. We will notify you of any new findings that may affect your care.] Get Prompt Medical Attention if any of the followingWARNING SIGNS occur: Repeated vomiting Severe or worsening headache or dizziness Unusual drowsiness, or unable to awaken as usual Confusion or change in behavior or speech, memory loss, blurred vision Convulsion (seizure) Increasing scalp or face swelling Redness, warmth or pus from the swollen area Fluid drainage or bleeding from the nose or ears You have been given the following additional information: Fall, Mechanical HEAD INJURY, No Wake-Up (Adult) (Electronically signed by Gerber Artis MD 05/03/2016 8:53)
--- NOTE | 2016-05-03 08:53 | ED MAR SUMMARY ---
..... Medication Administration Record [facility] [address] [place], [place] [id number] Patient: DHAVAL ORTEGA Visit ID: [id number] 70y, F Weight: 65.7 kg Height/Length: 64 in BMI: 24.9 ALLERGIES: Penicillins, Sulfa Antibiotics
== END 2016-04-30 20:45 | disposition home or self-care (01) ==
LOC: ED SRH 19:35
DX: S00.83XA Contusion of other part of head, initial encounter (principal); S00.31XA Abrasion of nose, initial encounter; W01.0XXA Fall on same level from slipping, tripping and stumbling without subsequent striking against object, initial encounter; Y93.9 Activity, unspecified; Y92.199 Unspecified place in other specified residential institution as the place of occurrence of the external cause; Y99.9 Unspecified external cause status; F03.90 Unspecified dementia, unspecified severity, without behavioral disturbance, psychotic disturbance, mood disturbance, and anxiety; Z79.82 Long term (current) use of aspirin; Z79.899 Other long term (current) drug therapy; Z88.2 Allergy status to sulfonamides

== ENCOUNTER 2016-05-23 09:55 | Emergency (ER) | payer OTHER ==
--- NOTE | 2016-05-23 10:26 | ED CLINICAL REPORT ---
Clinical Report - Physicians/Mid Levels [facility] [address] [place] [address] 05/23/2016 9:58 [id number] Time Seen: 10:02 May 23 2016. Arrived- By ambulance. Historian- EMS personnel. CPT: ER phys charges level 3 (#[id number]). HISTORY OF PRESENT ILLNESS Chief Complaint: INJURY TO HEAD. Location of injuries- head. The injury occurred just prior to arrival. Fell while standing. Occurred at home. ( Staff Could not get a hold of to ask whether to go to the ER so defaulted to sending her to the ER.). The patient sustained a blow to the head. No loss of consciousness. REVIEW OF SYSTEMS No numbness, dizziness, hearing loss, chest pain or difficulty breathing. No weakness, headache, nausea, abdominal pain or laceration. No fever or vomiting. All systems otherwise negative, except as recorded above. PAST HISTORY Allergic Rhinitis. Angiogenital herpes viral infx. Migraine Headache. Hypercholesterolemia. LUCIEN. Social phobia. Anxiety. Depressive disorder. Alzheimer's Disease. Medications: Pepto-Bismol Oral. Milk of Magnesia Oral. Bisac-Evac Rectal. Enema Rectal. Bisac-Evac. Antacid Anti-Gas Oral. CO-Q 10 [place]-3 Fish Oil Oral. Acetamoniphen 325. CO-Q10. Calcium Carbonate Antacid Oral. Acetaminophen Extra Strength Oral. Aspirin Oral (Tablet Chewable 81 mg) 1 tablet. Divalproex Sodium ER Oral. Ensure Oral. LORazepam Oral. Melatonin Oral. Multivitamins Oral. RisperiDONE Oral. TraZODone HCl Oral. Vitamin D Oral. Vitamin E Complex Oral. Allergies: Augmentin. Sulfa Antibiotics. SOCIAL HISTORY No alcohol use. ADDITIONAL NOTES The nursing notes have been reviewed. PHYSICAL EXAM Vital Signs: 05/23/2016 10:00 BP: 135/67. HR: 91. RR: 16. O2 saturation: 97%. Temp: 98.6 F. FLACC pain scale: 1/10. Appearance: Alert. No acute distress. Head: Head non-tender. No swelling of head. Vertex: mild tenderness of the posterior aspect of the vertex. No swelling, laceration, abrasion or ecchymosis. Eyes: Pupils equal, round and reactive to light. EOM intact. ENT: No dental injury. Neck: Painless ROM. Non-tender. CVS: Heart sounds normal. Pulses normal. Respiratory: Breath sounds normal. Chest nontender. Abdomen: Nontender. Back: No tenderness. Skin: Skin intact. Skin warm. Extremities: Normal inspection. Extremities atraumatic. Neuro: No motor deficit. No sensory deficit. PROGRESS AND PROCEDURES Course of Care: Pt ambulates around the ER without guarding or unsteadiness. Patient/family counseled. Disposition: Discharged. Condition: stable. CLINICAL IMPRESSION Fall on same level by tripping. Single contusion to the scalp.No hematoma or skin abrasion. INSTRUCTIONS Apply ice for 15-20 minutes three times a day for one days until better. Warnings: HEAD INJURY PRECAUTIONS: An observer must check on the patient every 4 hours for the next 24 hours to confirm that the patient responds as expected, is not confused, has no new weakness or numbness, and has no other problems. GENERAL WARNINGS: Return or contact your physician immediately if your condition worsens or changes unexpectedly, if not improving as expected, or if other problems arise. Your Current Medications: CONTINUE TAKING THE FOLLOWING MEDICATIONS: Acetaminophen Extra Strength Oral. Acetamoniphen 325*. Antacid Anti-Gas Oral. Aspirin Oral : Tablet Chewable 81 mg, 1 tablet. Bisac-Evac*. Bisac-Evac Rectal. Calcium Carbonate Antacid Oral. CO-Q 10 [place]-3 Fish Oil Oral. CO-Q10*. Divalproex Sodium ER Oral. Enema Rectal. Ensure Oral. LORazepam Oral. Melatonin Oral. Milk of Magnesia Oral. Multivitamins Oral. Pepto-Bismol Oral. RisperiDONE Oral. TraZODone HCl Oral. Vitamin D Oral. Vitamin E Complex Oral. Follow-up: Follow up with your doctor as needed. Understanding of the discharge instructions verbalized by patient and family. Discharge instructions reviewed with and understanding was verbalized by spouse. (Electronically signed by Gerber Artis MD 05/25/2016 20:55)
--- NOTE | 2016-05-23 10:26 | ED NURSING NOTES ---
Clinical Report - Nurses [facility] [address] [place] [address] 05/23/2016 9:58 Patient: DHAVAL ORTEGA TRIAGE Triage time 10:00 May 23 2016. Acuity: LEVEL 3. Chief Complaint: FALL. SEPSIS SCREEN: Sepsis Screen. Negative (no infection suspected/documented). --10:08 Omer Lara R.N. 10:00 05/23/16. BP: 135/67. HR: 91. RR: 16. O2 saturation: 97% on room air. Temp: 98.6 F. FLACC pain scale: 04/17. --10:08 Omer Lara R.N. Weight: 49.8 kg estimated. Height/Length: 64 inches Per Patient. BMI: 18.9. --10:00 Omer Lara R.N. Medications Acetaminophen Extra Strength Oral. Aspirin Oral (Tablet Chewable 81 mg) 1 tablet. Divalproex Sodium ER Oral. Ensure Oral. LORazepam Oral. Melatonin Oral. Multivitamins Oral. RisperiDONE Oral. TraZODone HCl Oral. Vitamin D Oral. Vitamin E Complex Oral. --10:19 Omer Lara R.N. Calcium Carbonate Antacid Oral. --10:20 Omer Lara R.N. CO-Q10. --10:20 Omer Lara R.N. Acetamoniphen 325. --10:21 Omer Lara R.N. Antacid Anti-Gas Oral. CO-Q 10 [place]-3 Fish Oil Oral. --10:21 Omer Lara R.N. Bisac-Evac. --10:21 Omer Lara R.N. Bisac-Evac Rectal. Enema Rectal. --10:21 Omer Lara R.N. Milk of Magnesia Oral. --10:22 Omer Lara R.N. Pepto-Bismol Oral. --10:22 Omer Lara R.N. Allergies Sulfa Antibiotics. --10:01 Omer Lara R.N. Augmentin. --10:02 Omer Lara R.N. History Arrived by EMS. Historian: patient. This occurred today. No headache. Trauma activation: Pre-hospital notification of patient arrival was received. PAST MEDICAL HX: Tetanus status: unknown. Immunizations: status is unknown. FALL RISK ASSESSMENT: Fall risk assessment completed. Risk factors identified include patient medications, age greater than 65 years, history of fall and impairment of cognition. Fall interventions initiated. Patient placed on stretcher. Side rails up x1. Bed in low position. Patient visible from nurses' station. Staff at bedside. Call light in reach of patient. Instructed not to get up without assistance. FUNCTIONAL ASSESSMENT: Functional assessment performed: requires assistance with the activities of daily living; wears glasses; cognitive impairment- Alzheimer's disease. LEARNING NEEDS ASSESSMENT: A learning needs assessment was performed. Factors affecting the patient's ability to learn include cognitive limitations. --10:08 Omer Lara R.N. PROBLEMS: Allergic Rhinitis. Angiogenital herpes viral infx. Migraine Headache. Hypercholesterolemia. LUCIEN. Social phobia. Anxiety. Depressive disorder. Alzheimer's Disease. --10:06 Omer Lara R.N. Interventions ID band on patient. To treatment room. --10:08 Omer Lara R.N. PHYSICAL ASSESSMENT GENERAL / NEURO / PSYCH: Alert. Appears anxious. [place] Coma Scale: 14- eyes open spontaneously (4); best verbal response- disoriented (4); best motor response- obeys commands (6). The patient is disoriented to person, time and situation. HEENT: ( Pt c/o pain to back of the head after fall.). RESPIRATORY: Respirations not labored. SKIN: Skin intact. Skin is warm and dry. --10:10 Omer Lara R.N. NURSING PROGRESS NOTES Patient identifiers checked. Call light placed in reach. Side rails up x 1. Bed placed in lowest position. Patient ready for evaluation- chart flagged and ED physician notified. ( Patient ambulatory, took a walk around the unit with SBA from staff. Pt anxious, agitated, asking for .). --10:11 Omer Lara R.N. ( Pt. restless and anxious, asking to leave. Allowed to walk around ED with RN or tech, 1:1 with patient at all times. phoned, is on his way.). --10:15 Cheyenne Theodore R.N. DISPOSITION / DISCHARGE Departure time: 1045. Discharge instructions provided and reviewed with the spouse. Reviewed warnings. Spouse verbalized understanding. Written instructions provided in Irish. The patient was discharged by the physician. She was discharged to the snf and accompanied by spouse. She left the Emergency Department ambulatory and via private vehicle. Spouse driving. --10:48 Cheyenne Theodore R.N. 10:46 05/23/16. BP: 135/67. HR: 91. RR: 16. O2 saturation: 97%. Temp: 98.6 F. --10:48 Cheyenne Theodore R.N. Locked/Released at 05/23/2016 10:50 by Cheyenne Theodore R.N.
--- NOTE | 2016-05-23 10:26 | ED CLINICAL REPORT ---
Clinical Report - Physicians/Mid Levels [facility] [address] [place] [address] 05/23/2016 9:58 [id number] Time Seen: 10:02 May 23 2016. Arrived- By ambulance. Historian- EMS personnel. CPT: ER phys charges level 3 (#[id number]). HISTORY OF PRESENT ILLNESS Chief Complaint: INJURY TO HEAD. Location of injuries- head. The injury occurred just prior to arrival. Fell while standing. Occurred at home. ( Staff Could not get a hold of to ask whether to go to the ER so defaulted to sending her to the ER.). The patient sustained a blow to the head. No loss of consciousness. REVIEW OF SYSTEMS No numbness, dizziness, hearing loss, chest pain or difficulty breathing. No weakness, headache, nausea, abdominal pain or laceration. No fever or vomiting. All systems otherwise negative, except as recorded above. PAST HISTORY Allergic Rhinitis. Angiogenital herpes viral infx. Migraine Headache. Hypercholesterolemia. LUCIEN. Social phobia. Anxiety. Depressive disorder. Alzheimer's Disease. Medications: Pepto-Bismol Oral. Milk of Magnesia Oral. Bisac-Evac Rectal. Enema Rectal. Bisac-Evac. Antacid Anti-Gas Oral. CO-Q 10 [place]-3 Fish Oil Oral. Acetamoniphen 325. CO-Q10. Calcium Carbonate Antacid Oral. Acetaminophen Extra Strength Oral. Aspirin Oral (Tablet Chewable 81 mg) 1 tablet. Divalproex Sodium ER Oral. Ensure Oral. LORazepam Oral. Melatonin Oral. Multivitamins Oral. RisperiDONE Oral. TraZODone HCl Oral. Vitamin D Oral. Vitamin E Complex Oral. Allergies: Augmentin. Sulfa Antibiotics. SOCIAL HISTORY No alcohol use. ADDITIONAL NOTES The nursing notes have been reviewed. PHYSICAL EXAM Vital Signs: 05/23/2016 10:00 BP: 135/67. HR: 91. RR: 16. O2 saturation: 97%. Temp: 98.6 F. FLACC pain scale: 1/10. Appearance: Alert. No acute distress. Head: Head non-tender. No swelling of head. Vertex: mild tenderness of the posterior aspect of the vertex. No swelling, laceration, abrasion or ecchymosis. Eyes: Pupils equal, round and reactive to light. EOM intact. ENT: No dental injury. Neck: Painless ROM. Non-tender. CVS: Heart sounds normal. Pulses normal. Respiratory: Breath sounds normal. Chest nontender. Abdomen: Nontender. Back: No tenderness. Skin: Skin intact. Skin warm. Extremities: Normal inspection. Extremities atraumatic. Neuro: No motor deficit. No sensory deficit. PROGRESS AND PROCEDURES Course of Care: Pt ambulates around the ER without guarding or unsteadiness. Patient/family counseled. Disposition: Discharged. Condition: stable. CLINICAL IMPRESSION Fall on same level by tripping. Single contusion to the scalp.No hematoma or skin abrasion. INSTRUCTIONS Apply ice for 15-20 minutes three times a day for one days until better. Warnings: HEAD INJURY PRECAUTIONS: An observer must check on the patient every 4 hours for the next 24 hours to confirm that the patient responds as expected, is not confused, has no new weakness or numbness, and has no other problems. GENERAL WARNINGS: Return or contact your physician immediately if your condition worsens or changes unexpectedly, if not improving as expected, or if other problems arise. Your Current Medications: CONTINUE TAKING THE FOLLOWING MEDICATIONS: Acetaminophen Extra Strength Oral. Acetamoniphen 325*. Antacid Anti-Gas Oral. Aspirin Oral : Tablet Chewable 81 mg, 1 tablet. Bisac-Evac*. Bisac-Evac Rectal. Calcium Carbonate Antacid Oral. CO-Q 10 [place]-3 Fish Oil Oral. CO-Q10*. Divalproex Sodium ER Oral. Enema Rectal. Ensure Oral. LORazepam Oral. Melatonin Oral. Milk of Magnesia Oral. Multivitamins Oral. Pepto-Bismol Oral. RisperiDONE Oral. TraZODone HCl Oral. Vitamin D Oral. Vitamin E Complex Oral. Follow-up: Follow up with your doctor as needed. Understanding of the discharge instructions verbalized by patient and family. Discharge instructions reviewed with and understanding was verbalized by spouse. (Electronically signed by Gerber Artis MD 05/25/2016 20:55)
--- NOTE | 2016-05-23 10:26 | ED NURSING NOTES ---
Clinical Report - Nurses [facility] [address] [place] [address] 05/23/2016 9:58 Patient: DHAVAL ORTEGA TRIAGE Triage time 10:00 May 23 2016. Acuity: LEVEL 3. Chief Complaint: FALL. SEPSIS SCREEN: Sepsis Screen. Negative (no infection suspected/documented). --10:08 Omer Lara R.N. 10:00 05/23/16. BP: 135/67. HR: 91. RR: 16. O2 saturation: 97% on room air. Temp: 98.6 F. FLACC pain scale: 04/17. --10:08 Omer Lara R.N. Weight: 49.8 kg estimated. Height/Length: 64 inches Per Patient. BMI: 18.9. --10:00 Omer Lara R.N. Medications Acetaminophen Extra Strength Oral. Aspirin Oral (Tablet Chewable 81 mg) 1 tablet. Divalproex Sodium ER Oral. Ensure Oral. LORazepam Oral. Melatonin Oral. Multivitamins Oral. RisperiDONE Oral. TraZODone HCl Oral. Vitamin D Oral. Vitamin E Complex Oral. --10:19 Omer Lara R.N. Calcium Carbonate Antacid Oral. --10:20 Omer Lara R.N. CO-Q10. --10:20 Omer Lara R.N. Acetamoniphen 325. --10:21 Omer Lara R.N. Antacid Anti-Gas Oral. CO-Q 10 [place]-3 Fish Oil Oral. --10:21 Omer Lara R.N. Bisac-Evac. --10:21 Omer Lara R.N. Bisac-Evac Rectal. Enema Rectal. --10:21 Omer Lara R.N. Milk of Magnesia Oral. --10:22 Omer Lara R.N. Pepto-Bismol Oral. --10:22 Omer Lara R.N. Allergies Sulfa Antibiotics. --10:01 Omer Lara R.N. Augmentin. --10:02 Omer Lara R.N. History Arrived by EMS. Historian: patient. This occurred today. No headache. Trauma activation: Pre-hospital notification of patient arrival was received. PAST MEDICAL HX: Tetanus status: unknown. Immunizations: status is unknown. FALL RISK ASSESSMENT: Fall risk assessment completed. Risk factors identified include patient medications, age greater than 65 years, history of fall and impairment of cognition. Fall interventions initiated. Patient placed on stretcher. Side rails up x1. Bed in low position. Patient visible from nurses' station. Staff at bedside. Call light in reach of patient. Instructed not to get up without assistance. FUNCTIONAL ASSESSMENT: Functional assessment performed: requires assistance with the activities of daily living; wears glasses; cognitive impairment- Alzheimer's disease. LEARNING NEEDS ASSESSMENT: A learning needs assessment was performed. Factors affecting the patient's ability to learn include cognitive limitations. --10:08 Omer Lara R.N. PROBLEMS: Allergic Rhinitis. Angiogenital herpes viral infx. Migraine Headache. Hypercholesterolemia. LUCIEN. Social phobia. Anxiety. Depressive disorder. Alzheimer's Disease. --10:06 Omer Lara R.N. Interventions ID band on patient. To treatment room. --10:08 Omer Lara R.N. PHYSICAL ASSESSMENT GENERAL / NEURO / PSYCH: Alert. Appears anxious. [place] Coma Scale: 14- eyes open spontaneously (4); best verbal response- disoriented (4); best motor response- obeys commands (6). The patient is disoriented to person, time and situation. HEENT: ( Pt c/o pain to back of the head after fall.). RESPIRATORY: Respirations not labored. SKIN: Skin intact. Skin is warm and dry. --10:10 Omer Lara R.N. NURSING PROGRESS NOTES Patient identifiers checked. Call light placed in reach. Side rails up x 1. Bed placed in lowest position. Patient ready for evaluation- chart flagged and ED physician notified. ( Patient ambulatory, took a walk around the unit with SBA from staff. Pt anxious, agitated, asking for .). --10:11 Omer Lara R.N. ( Pt. restless and anxious, asking to leave. Allowed to walk around ED with RN or tech, 1:1 with patient at all times. phoned, is on his way.). --10:15 Cheyenne Theodore R.N. DISPOSITION / DISCHARGE Departure time: 1045. Discharge instructions provided and reviewed with the spouse. Reviewed warnings. Spouse verbalized understanding. Written instructions provided in Frisian. The patient was discharged by the physician. [facility] and accompanied by spouse. She left the Emergency Department ambulatory and via private vehicle. Spouse driving. --10:48 Cheyenne Theodore R.N. 10:46 05/23/16. BP: 135/67. HR: 91. RR: 16. O2 saturation: 97%. Temp: 98.6 F. --10:48 Cheyenne Theodore R.N. Locked/Released at 05/23/2016 10:50 by Cheyenne Theodore R.N.
--- NOTE | 2016-05-25 20:55 | ED DISCHARGE INSTRUCTIONS ---
Patient: DHAVAL ORTEGA General Instructions [facility] VisitID: [id number] [address] [place] [address] 70y, F Registration Date/Time: 05/23/2016 Fall on same level by tripping. Single contusion to the scalp.No hematoma or skin abrasion. INSTRUCTIONS Apply ice for 15-20 minutes three times a day for one days until better. Warnings: HEAD INJURY PRECAUTIONS: An observer must check on the patient every 4 hours for the next 24 hours to confirm that the patient responds as expected, is not confused, has no new weakness or numbness, and has no other problems. GENERAL WARNINGS: Return or contact your physician immediately if your condition worsens or changes unexpectedly, if not improving as expected, or if other problems arise. Your Current Medications: CONTINUE TAKING THE FOLLOWING MEDICATIONS: Acetaminophen Extra Strength Oral. Acetamoniphen 325*. Antacid Anti-Gas Oral. Aspirin Oral : Tablet Chewable 81 mg, 1 tablet. Bisac-Evac*. Bisac-Evac Rectal. Calcium Carbonate Antacid Oral. CO-Q 10 [place]-3 Fish Oil Oral. CO-Q10*. Divalproex Sodium ER Oral. Enema Rectal. Ensure Oral. LORazepam Oral. Melatonin Oral. Milk of Magnesia Oral. Multivitamins Oral. Pepto-Bismol Oral. RisperiDONE Oral. TraZODone HCl Oral. Vitamin D Oral. Vitamin E Complex Oral. Follow-up: Follow up with your doctor as needed. Understanding of the discharge instructions verbalized by patient and family. Discharge instructions reviewed with and understanding was verbalized by spouse. ADDITIONAL INFORMATION Mechanical Fall You have had a fall today. It appears that the cause is mechanical. That means that you slipped, tripped or lost your balance. If your fall had been due to fainting or a seizure, further tests would be required. Home Care: Rest today and resume your normal activities when you are feeling back to normal. If you were injured during the fall, follow the advice from your doctor regarding care of your injury. You may use acetaminophen (Tylenol) or ibuprofen (Motrin, Advil) to control pain, unless another pain medicine was prescribed. [NOTE: If you have chronic liver or kidney disease or ever had a stomach ulcer or GI bleeding, talk with your doctor before using these medicines.] Fall Prevention: Was there anything that caused your fall that can be fixed, removed, or replaced? Make your home safe by keeping walkways clear of objects you may trip over. Use non-slip pads under rugs. Do not walk in poorly lit areas. Do not stand on chairs or wobbly ladders. Use caution when reaching overhead or looking upward. This position can cause a loss of balance. Be sure your shoes fit properly, have non-slip bottoms and are in good condition. Be cautious when going up and down curbs, and walking on uneven sidewalks. If your balance is poor, consider using a cane or walker. Stay as active as you can. Balance, flexibility, strength, and endurance all come from exercise. They all play a role in preventing falls. Follow Up with your doctor or as advised by our staff. Get Prompt Medical Attention if any of the following occur: Repeated mechanical falls, or unexplained falls Dizziness, fainting or seizure Severe headache Chest pain or shortness of breath Palpitations (very rapid or very slow or irregular heartbeat) Blood in vomit, stools (black or red color) Weakness of an arm or leg or one side of the face Difficulty with speech or vision Scalp Contusion [No Wake-Up] A scalp contusion is a bruise with swelling and sometimes bleeding under the skin. The swelling should start to go down within two days. Although there is no sign of a serious injury at this time, symptoms may appear later. These could be a sign of a more serious problem (bruising or bleeding in the brain). Therefore, watch for the warning signs below. Home Care: During the next 24 hours someone must stay with you to check for the signs below. It is not necessary to stay awake or be awakened during the night. If you have swelling of the face or scalp, apply an ice pack (ice cubes in a plastic bag, wrapped in a towel) for 20 minutes. Do this every 1-2 hours until the swelling starts to go down. You may use acetaminophen (Tylenol) or ibuprofen (Motrin, Advil) to control pain, unless another pain medicine was prescribed. [ NOTE : If you have chronic liver or kidney disease or ever had a stomach ulcer or GI bleeding, talk with your doctor before using these medicines.] For the next 24 hours: Do not take alcohol, sedatives or medicines that make you sleepy. Do not drive or operate machinery. Avoid strenuous activities. No lifting or straining. If you have had any symptoms of a concussion today (nausea, vomiting, dizziness, confusion, headache, memory loss or if you were knocked out), do not return to sports or any activity that could result in another head injury until all symptoms are gone and you have been cleared by your doctor. A second head injury before fully recovering from the first one can lead to serious brain injury. Follow Up with your doctor if symptoms are not improving after 24 hours, or as directed. [NOTE: Any X-rays or CT scans taken will be reviewed by a radiologist. You will be notified of any new findings that may affect your care.] Get Prompt Medical Attention if any of the following occur: Repeated vomiting Severe or worsening headache or dizziness Unusual drowsiness, or unable to awaken as usual Confusion or change in behavior or speech, memory loss, blurred vision Convulsion (seizure) Increasing scalp or face swelling Redness, warmth or pus from the swollen area Fluid drainage or bleeding from the nose or ears Fever of 100.4F(38C) or higher, or as directed by your healthcare provider Head Injury, No Wake-Up (Adult) You have had a head injury. It does not appear serious at this time. Symptoms of a more serious problem (concussion, bruising, or bleeding in the brain) may appear later. Therefore, watch for the WARNING SIGNS listed below. Home Care: Your healthcare provider will tell you whether its okay to drive. If so, you can drive yourself home. For the next day or so, be careful when driving or using heavy machinery until you are sure you have no delayed symptoms. During the next 24 hours someone must stay with you to check for the signs below. It is not necessary to stay awake or be awakened during the night. If you have swelling of the face or scalp, apply an ice pack (ice cubes in a plastic bag, wrapped in a towel) for 20 minutes. Do this every 1-2 hours until the swelling starts to go down. Do not use aspirin or ibuprofen (Motrin, Advil) after a head injury.You may use acetaminophen (Tylenol)to control pain, unless another pain medicine was prescribed. [NOTE: If you have chronic liver or kidney disease or ever had a stomach ulcer or GI bleeding, talk with your doctor before using these medicines.] For the next 24 hours: Do not take alcohol, sedatives or medicines that make you sleepy. Avoid strenuous activities. No lifting or straining. If you have had any symptoms of a concussion today (nausea, vomiting, dizziness, confusion, headache, memory loss or if you were knocked out), do not return to sports or any activity that could result in another head injury until all symptoms are gone and you have been cleared by your doctor. A second head injury before fully recovering from the first one can lead to serious brain injury. Follow Up with your doctor if symptoms are not improving after 24 hours, or as directed. [NOTE: A radiologist will review any X-rays or CT scans that were taken. We will notify you of any new findings that may affect your care.] Get Prompt Medical Attention if any of the followingWARNING SIGNS occur: Repeated vomiting Severe or worsening headache or dizziness Unusual drowsiness, or unable to awaken as usual Confusion or change in behavior or speech, memory loss, blurred vision Convulsion (seizure) Increasing scalp or face swelling Redness, warmth or pus from the swollen area Fluid drainage or bleeding from the nose or ears You have been given the following additional information: Fall, Mechanical Scalp Contusion, No Wake Up HEAD INJURY, No Wake-Up (Adult) (Electronically signed by Gerber Artis MD 05/25/2016 20:55)
--- NOTE | 2016-05-25 20:55 | ED MAR SUMMARY ---
..... Medication Administration Record [facility] [address] [place], [place] [id number] Patient: DHAVAL ORTEGA Anyi Visit ID: [id number] 70y, F Weight: 49.8 kg Height/Length: 64 in BMI: 18.9 ALLERGIES: Augmentin, Sulfa Antibiotics
--- NOTE | 2016-05-25 20:55 | ED MED RECONCILIATION SUMMARY ---
Patient: DHAVAL ORTEGA Medication Reconciliation Report [facility] VisitID: [id number] [address] [place] [address] 70y, F Registration Date/Time: 05/23/2016 Weight: 49.8 kg Height/Length: 64 in. BMI: 18.9 ALLERGIES: Augmentin, Sulfa Antibiotics The patient's Home Medications are listed below: CONTINUE TAKING THE FOLLOWING MEDICATIONS: Acetaminophen Extra Strength Oral Acetamoniphen 325 Antacid Anti-Gas Oral Aspirin Oral (81 mg) 1 tablet Bisac-Evac Bisac-Evac Rectal Calcium Carbonate Antacid Oral CO-Q 10 [place]-3 Fish Oil Oral CO-Q10 Divalproex Sodium ER Oral Enema Rectal Ensure Oral LORazepam Oral Melatonin Oral Milk of Magnesia Oral Multivitamins Oral Pepto-Bismol Oral RisperiDONE Oral TraZODone HCl Oral Vitamin D Oral Vitamin E Complex Oral The source(s) of the original Home Medication information: Not obtained. The following Medications were given to the patient in the Emergency Department: None. The following Medications were prescribed to the patient: None.
--- NOTE | 2016-05-25 20:55 | ED MAR SUMMARY ---
..... Medication Administration Record [facility] [address] [place], [place] [id number] Patient: DHAVAL ORTEGA Anyi Visit ID: [id number] 70y, F Weight: 49.8 kg Height/Length: 64 in BMI: 18.9 ALLERGIES: Augmentin, Sulfa Antibiotics
--- NOTE | 2016-05-25 20:55 | ED MED RECONCILIATION SUMMARY ---
Patient: DHAVAL ORTEGA Medication Reconciliation Report [facility] VisitID: [id number] [address] [place] [address] 70y, F Registration Date/Time: 05/23/2016 Weight: 49.8 kg Height/Length: 64 in. BMI: 18.9 ALLERGIES: Augmentin, Sulfa Antibiotics The patient's Home Medications are listed below: CONTINUE TAKING THE FOLLOWING MEDICATIONS: Acetaminophen Extra Strength Oral Acetamoniphen 325 Antacid Anti-Gas Oral Aspirin Oral (81 mg) 1 tablet Bisac-Evac Bisac-Evac Rectal Calcium Carbonate Antacid Oral CO-Q 10 [place]-3 Fish Oil Oral CO-Q10 Divalproex Sodium ER Oral Enema Rectal Ensure Oral LORazepam Oral Melatonin Oral Milk of Magnesia Oral Multivitamins Oral Pepto-Bismol Oral RisperiDONE Oral TraZODone HCl Oral Vitamin D Oral Vitamin E Complex Oral The source(s) of the original Home Medication information: Not obtained. The following Medications were given to the patient in the Emergency Department: None. The following Medications were prescribed to the patient: None.
== END 2016-05-23 10:45 | disposition home or self-care (01) ==
LOC: ED SRH 09:55
DX: S00.03XA Contusion of scalp, initial encounter (principal); W01.0XXA Fall on same level from slipping, tripping and stumbling without subsequent striking against object, initial encounter; Y93.9 Activity, unspecified; Y92.009 Unspecified place in unspecified non-institutional (private) residence as the place of occurrence of the external cause; Y99.9 Unspecified external cause status; Z79.899 Other long term (current) drug therapy; Z88.2 Allergy status to sulfonamides; Z88.8 Allergy status to other drugs, medicaments and biological substances